=== PATIENT | male | born 1970 | race Caucasian/White ===

== ENCOUNTER 2021-06-08 04:18 | Emergency (ER) | payer OTHER ==
[~2021-06-08] VITALS: Ht 172.7 cm; Wt 107.3 kg
[~2021-06-08 04:18] MED LIST: CIPRO500 MG PO; FLOMAX0.4 MG PO; INDOMETHACIN75 MG PO; KETOROLAC TROME10 MG PO; LISINOPRIL5 MG PO; PERCOCET 5-3251 EACH PO; PROMETHAZINE HC25 M1 PO; XANAX0.5 MG PO
== END 2021-06-08 04:39 | disposition home or self-care (01) ==
LOC: ED 04:18
DX: R03.0 Elevated blood-pressure reading, without diagnosis of hypertension (principal); Z88.8 Allergy status to other drugs, medicaments and biological substances
CPT/HCPCS: 99283

== ENCOUNTER 2022-03-01 13:55 | Inpatient (IN) | payer OTHER ==
[~2022-03-01] VITALS: Ht 172.7 cm; Wt 108.0 kg
--- NOTE | 2022-03-02 07:39 | EKG ---
[facility] [address] [facility] [place] [address] Signed Sinus tachycardia Right superior axis deviation Abnormal ECG When compared with ECG of 29-SEP-2018 10:20, No significant change was found Confirmed by MONIKA ZEPEDA MD ([id number] on 03/02/2022 7:38:55 AM Electronically Signed By: MONIKA ZEPEDA MD 03/02/22 0739 PATIENT NAME: PATRICK ENRIQUE Electrocardiogram DATE OF : 72 PHYSICIAN: MONIKA ZEPEDA MD REPORT #: [id number] REPORT IS CONFIDENTIAL AND NOT TO BE RELEASED WITHOUT AUTHORIZATION
[2022-03-04] MEDS ORDERED: CIPROFLOXACIN500 MG PO (11:27)
[2022-03-04] MEDS ORDERED: LEVOFLOXACIN500 MG PO (11:33)
== END 2022-03-04 11:50 | disposition home or self-care (01) | DRG 872 ==
LOC: ED 13:55 → MS 20:22
PROVIDERS: ADMIT Internal Medicine; ATTEND Internal Medicine
DX: A41.1 Sepsis due to other specified staphylococcus (principal); N17.9 Acute kidney failure, unspecified; Z20.822 Contact with and (suspected) exposure to COVID-19; N41.9 Inflammatory disease of prostate, unspecified; E86.0 Dehydration; R07.9 Chest pain, unspecified; N20.0 Calculus of kidney; D72.829 Elevated white blood cell count, unspecified; I10 Essential (primary) hypertension; Z98.890 Other specified postprocedural states; Z88.8 Allergy status to other drugs, medicaments and biological substances; Z87.442 Personal history of urinary calculi
CPT/HCPCS: 36415; 71045; 74176; 80048; 80053; 81001; 83605; 83735; 84443; 84484; 85025; 85379; 86140; 87040; 87077; 87186; 93005; 93010; 94660; 94760; A9270; C9803; J0696; J3480; J7030; U0003